=== PATIENT | female | born 1960 | race Caucasian/White ===

== ENCOUNTER 2022-01-14 15:23 | Emergency (ER) | payer OTHER ==
[~2022-01-14 15:23] MED LIST: MOTEGRITY1 MG PO
[2022-01-14] MEDS ORDERED: MEDROL 4MG DOSEP4 MG PO (16:57)
[2022-01-14] MEDS ORDERED: CYCLOBENZAPRINE10 MG PO (16:57)
== END 2022-01-14 17:00 | disposition home or self-care (01) ==
LOC: FER 15:23
DX: S13.4XXA Sprain of ligaments of cervical spine, initial encounter (principal); Z88.5 Allergy status to narcotic agent; V49.9XXA Car occupant (driver) (passenger) injured in unspecified traffic accident, initial encounter
CPT/HCPCS: 70450; 71045; 72125; 73030